=== PATIENT | female | born 1970 | race Caucasian/White ===

== ENCOUNTER 2022-02-15 11:37 | Emergency (ER) | payer SELFPAY ==
[2022-02-15 11:45] VITALS: BP 115/70; PULSE 81; RESP 16; TEMP 36.7; O2SAT 98; BMI 17.6
[2022-02-15] MEDS: sodium chloride 0.9% 1,000 ML 999 ML IV ×2 (12:09→12:45)
[2022-02-15 12:11] LABS: Basophils % 0.4 %; Eosinophils # 0.2 10^3/uL (0.0-0.8); Eosinophils % 2.7 %; Hematocrit 44.7 % (37.0-47.0); Hemoglobin 14.4 g/dL (11.5-15.3); Lymphocytes # 2.7 10^3/uL (0.8-4.8); Lymphocytes % 38.6 %; Mean Corpuscular HGB Conc 32.2 g/dL (30.0-36.0); Mean Corpuscular Hemoglobin 33.2 pg (28.0-34.0); Mean Platelet Volume 12.3 fL (7.4-10.4); Monocytes # 0.5 10^3/uL (0.2-0.9); Monocytes % 7.7 %; Neutrophils # 3.48 10^3/uL (1.8-7.7); Neutrophils % 50.3 %; Nucleated Red Blood Cells % 0 %; Platelet Count 272 10^3/cmm (130-400); Red Blood Count 4.34 10^6/uL (4.1-5.3); Red Cell Distribution Width 11.9 % (12.1-15.1); White Blood Count 6.9 10^3/uL (4.0-10.0)
--- NOTE | 2022-02-15 12:18 | W.ED.GENADLT ---
HPI - General Adult General: Chief complaint: Abdominal Pain Stated complaint: side pain and passing out Time Seen by Provider: 02/15/22 11:49 History of Present Illness: Patient is a 51-year-old female with history of prior C-sections, partial hysterectomy, tubal ligation presenting to the emergency room with complaints of left upper abdominal pain for the last 3-month. Patient tells me over that period time, the pain has progressively worsened. When she lies flat the pain is worse. Patient reports the pain is intermittent colicky not worse with p.o. intake. Patient denies any diarrhea, melena medic easier. Patient denies any complaints, prior history of renal colic, or any vaginal discharge. Patient denies any chest pain, shortness breath palpitation cough runny nose sore throat. Patient has any nausea or vomiting. Onset:3 months ago Duration:3 months Location:home Severity:moderate Associated symptoms: Deny chest pain, dyspnea, nausea, rash, palpitations or vomiting Review of Systems Const: Denies: fever(s) or chills Eyes: Denies: change in vision ENMT: Denies: mouth pain Card: Denies: chest pain or palpitations Resp: Denies: dyspnea or non-productive cough GI: Reports: abdominal pain (+L sided abd pain); Denies: nausea, vomiting or diarrhea : Denies: dysuria Musc: Denies: extremity pain Skin/Breast: Denies: rash or new lesions Neuro: Denies: weakness in extremities Psych: Reports: other (Normal mood) Baldomero/Lymph: Denies: easy bruising PFSH ED PFSH: Surgical History Hx of section S/P partial hysterectomy Tubal ligation status Social History Smoking and tobacco status: current every day smoker Alcohol intake: never Substance/Drug Use: current Physical Exam Const: COMMON NORMALS: alert HENMT: COMMON NORMALS: atraumatic HEAD & SCALP: atraumatic MOUTH: moist mucous membranes not abnormal Eye: COMMON NORMALS: EOMs intact bilaterally and conjunctivae normal CONJUNCTIVA: Yes conjunctivae normal Neck/C-Spine: COMMON NORMALS: full ROM and supple Resp: COMMON NORMALS: normal respiratory effort and clear to auscultation bilaterally AUSCULTATION: clear to auscultation bilaterally Cardio: COMMON NORMALS: regular rate RATE: regular rate GI: COMMON NORMALS: Soft to palpation PALPATION: Yes Soft to palpation OTHER: +L flank and CVA focal TTP. NO guarding rebound, guarding, rigidity. Neg Valdovinos/Neg McBurney's point tenderness, no suprabupic tenderness to palpation. Extremity: COMMON NORMALS: full ROM Neuro: SENSORIUM/ORIENTATION: Yes alert MOTOR EXAM: No Abnormal motor strength present and Other motor observations present (no focal motor deficits) Psych: COMMON NORMALS: speech normal SPEECH: Yes normal speech MOOD & AFFECT: Yes euthymic mood Course Vital Signs: Vital signs: Vital Signs Temperature 98.1 F 02/15/22 11:45 Pulse Rate 61 02/15/22 16:38 Respiratory Rate 16 02/15/22 16:38 Blood Pressure 133/60 02/15/22 16:38 Pulse Oximetry 98 02/15/22 16:38 [facility] - General Adult Medical Decision Making 51-year-old female with history of prior C-sections, tubal ligation, partial hysterectomy presenting to emergency room with complaints of left-sided flank and back pain for the last 3-month now worsening. On exam, patient is mild tenderness palpation over the L flank and CVA areas. No guarding or rebound tenderness. No suspicion for other acute intra-abdominal pathology including SBO, biliary pathology, appendicitis, diverticulitis, or other emergent condition requiring surgery. Incidental findings of vaginal thickening, nonspecific lymph nodes, and liver findings discussed extensively with patient. Patient received a copy of the CT report with the documented findings. Patient is instructed to follow up urgently with specialists. Current time, patient has no vaginal complaints or vaginal bleeding. I have given patient close follow-up with primary care provider for further reassessment everything discussed. She reports that her pain has significantly improved. Patient is able to tolerate p.o. in the emergency room. Rx tylenol PRN abd pain, maalox/pepcid PRN dyspepsia, and zofran PRN nausea/vomiting Disposition: Discharge. Patient counseled regarding diagnostic impression, treatment plan. Patient given ED strict return precautions to return for continuation, worsening, or development of new symptoms. Instructed to f/u w/ PCP regarding symptoms today. Patient verbalized understanding. Lab Data : 02/15/22 12:08 02/15/22 12:08 Radiology Impressions Abdomen/Pelvis CT 02/15/22 14:32 IMPRESSION: 1. Nonspecific upper vaginal soft tissue thickening and minimal regional stranding/inflammatory response near the vaginal cuff region. No drainable collection or adnexal region masses. Absent uterus. Clinical correlation should be obtained. If additional imaging is required, contrast-enhanced MRI may also be considered. 2. Nonspecific diffuse periportal lucency. See discussion above. No cirrhosis or discrete hepatic mass or gallbladder wall thickening. No biliary dilatation. 3. Borderline sized regional periceliac lymph node is noted as described. No other enlarged adenopathy. Laboratory Results WBC 6.9 10^3/uL (4.0-10.0) 02/15/22 12:08 RBC 4.34 10^6/uL (4.1-5.3) 02/15/22 12:08 Hgb 14.4 g/dL (11.5-15.3) 02/15/22 12:08 Hct 44.7 % (37.0-47.0) 02/15/22 12:08 MCV 103.0 fl (81-99) H 02/15/22 12:08 MCH 33.2 pg (28.0-34.0) 02/15/22 12:08 MCHC 32.2 g/dL (30.0-36.0) 02/15/22 12:08 RDW 11.9 % (12.1-15.1) L 02/15/22 12:08 Plt Count 272 10^3/cmm (130-400) 02/15/22 12:08 MPV 12.3 fL (7.4-10.4) H 02/15/22 12:08 Neut % (Auto) 50.3 % 02/15/22 12:08 Lymph % (Auto) 38.6 % 02/15/22 12:08 Talbot % (Auto) 7.7 % 02/15/22 12:08 Eos % (Auto) 2.7 % 02/15/22 12:08 Baso % (Auto) 0.4 % 02/15/22 12:08 Neut # (Auto) 3.48 10^3/uL (1.8-7.7) 02/15/22 12:08 Lymph # (Auto) 2.7 10^3/uL (0.8-4.8) 02/15/22 12:08 Talbot # (Auto) 0.5 10^3/uL (0.2-0.9) 02/15/22 12:08 Eos # (Auto) 0.2 10^3/uL (0.0-0.8) 02/15/22 12:08 Baso # (Auto) 0.0 10^3/uL (0.0-0.1) 02/15/22 12:08 Nucleated RBC % (auto) 0 % 02/15/22 12:08 Nucleated RBCs # 0.0 /100WBC 02/15/22 12:08 Sodium 139 mmol/L (136-145) 02/15/22 12:08 Potassium 3.9 mmol/L (3.5-5.1) 02/15/22 12:08 Chloride 101 mmol/L (98-107) 02/15/22 12:08 Carbon Dioxide 30 mmol/L (22-29) H 02/15/22 12:08 Anion Gap 11.9 (5-19) 02/15/22 12:08 BUN 6 mg/dL (6-20) 02/15/22 12:08 Creatinine 0.8 mg/dL (0.5-0.9) 02/15/22 12:08 GFR Calculation 76.2 mL/min (90-130) L 02/15/22 12:08 Glucose 74 mg/dL (65-115) 02/15/22 12:08 Calculated Osmolality 284 mOsm/kg (285-295) L 02/15/22 12:08 Calcium 9.5 mg/dL (8.5-10.5) 02/15/22 12:08 Total Bilirubin 0.2 mg/dL (0.15-1.2) 02/15/22 12:08 AST 18 U/L (0-32) 02/15/22 12:08 ALT 13 U/L (0-33) 02/15/22 12:08 Alkaline Phosphatase 82 IU/L (35-105) 02/15/22 12:08 Troponin T Gen 5 ng/L 6 ng/L (0-10) 02/15/22 12:08 Total Protein 7.5 g/dL (6.6-8.7) 02/15/22 12:08 Albumin 4.6 g/dL (3.5-5.2) 02/15/22 12:08 Globulin 2.9 g/dL (1.3-4.6) 02/15/22 12:08 Lipase 46 U/L (13-60) 02/15/22 12:08 Urine Color Yellow (Yellow) 02/15/22 13:21 Urine Appearance Clear (CLEAR) 02/15/22 13:21 Urine pH 6.5 (5-7) 02/15/22 13:21 Ur Specific Sultan 1.010 (1.005-1.030) 02/15/22 13:21 Urine Protein Neg (Negative) 02/15/22 13:21 Urine Glucose (UA) Norm (Normal) 02/15/22 13:21 Urine Ketones Negative (Negative) 02/15/22 13:21 Urine Blood Neg (Negative) 02/15/22 13:21 Urine Nitrate Negative (Negative) 02/15/22 13:21 Urine Bilirubin Neg (Negative) 02/15/22 13:21 Urine Urobilinogen Norm mg/dL (Negative) 02/15/22 13:21 Ur Leukocyte Esterase Negative (Negative) 02/15/22 13:21 Imaging Data Other Imaging: Radiologist's impression: [employer] [address] XRay Report Signed Patient: Karissa Durbin Unit #: [id number] : 05/28/1981 Age/Sex: 40 / F ADM Date: 02/15/22 Loc: ER Room/Bed: Attending Dr: Ordering Provider/Ordering MD: Reginaldo Joshua MD Date of Service: 02/15/22 Procedure(s): XR KUB portable [id number] Accession Number(s): [id number] Report Number: [id number] PROCEDURE INFORMATION: Exam: XR Abdomen Exam date and time: 02/15/2022 3:09 PM Age: 40 years old Clinical indication: Other: Swallowed foreign body; Additional info: Swallowed plastic TECHNIQUE: Imaging protocol: Radiologic exam of the abdomen. Views: Frontal supine view of the abdomen. 1 View. COMPARISON: CR (ABDOMEN, ) 01/10/2022 6:51 PM FINDINGS: Gastrointestinal tract: Normal. No bowel dilation. There is a radiodense object present in the right lower quadrant measuring 21 mm x 21 mm. This finding was not present on prior examination and correlates with a GI tract foreign body. This finding appears to be in the projection of the cecum but may be in small bowel near the cecum. Bones/joints: Unremarkable. XR/XR KUB portable 91300 IMPRESSION: 1. No acute GI abnormality. 2. Radiodense foreign body right lower quadrant ? Dictated By: Bruce Alcantar Signed By: Bruce Alcantar Signed Date/Time: 02/15/22 1550 DD/ 1509 [facility] [address] [place] [address] CT Scan Report Signed Patient: Cheli Dallas Unit #: [id number] : 1970 Age/Sex: 51 / F ADM Date: 02/15/22 Loc: ER Room/Bed: Attending Dr: Ordering Provider/Ordering MD: Reginaldo Joshua MD Date of Service: 02/15/22 Procedure(s): CT abdomen pelvis w con* [id number] Accession Number(s): [id number] Report Number: [id number] PROCEDURE INFORMATION: Exam: CT Abdomen And Pelvis With Contrast Exam date and time: 02/15/2022 3:13 PM Age: 51 years old Clinical indication: Abdominal pain; Localized; Left lower quadrant (llq); Prior surgery; Surgery type: Partial hysto; Additional info: Abd pain TECHNIQUE: Imaging protocol: Computed tomography of the abdomen and pelvis with contrast. Radiation optimization: All CT scans at this facility use at least one of these dose optimization techniques: automated exposure control; mA and/or kV adjustment per patient size (includes targeted exams where dose is matched to clinical indication); or iterative reconstruction. Contrast material: OMNI 350; Contrast volume: 80 ml; Contrast route: INTRAVENOUS (IV);? COMPARISON: No relevant prior studies available. RADIATION DOSE METRICS: Total DLP (mGy-cm): 288.7 FINDINGS: Liver: Liver is normal in size without cirrhosis or discrete mass. However there is nonspecific diffuse periportal lucency which is nonspecific and may be related to diffuse hepatic biliary disease or edema secondary to systemic/cardiac disease. No obvious biliary dilatation. Gallbladder and bile ducts: No obvious gallbladder wall thickening or regional inflammatory response. Pancreas: Normal. No ductal dilation. Spleen: Normal. No splenomegaly. Adrenal glands: Normal. No mass. Kidneys and ureters: No obstructing calculus. No hydronephrosis. Stomach and bowel: Moderate stool burden with no bowel obstruction or suspicious bowel findings otherwise. Appendix: No evidence of appendicitis. Intraperitoneal space: Unremarkable. No free air. No significant fluid collection. Vasculature: No abdominal aortic aneurysm.? Lymph nodes: Borderline size periceliac lymph node is noted measuring 9 mm short axis. Otherwise no enlarged regional adenopathy. Urinary bladder: Unremarkable as visualized. Reproductive: Absent uterus. There is probable nonspecific soft tissue thickening and mild regional soft tissue haziness in the upper vaginal region near the vaginal cuff. Clinical correlation should be obtained. No adnexal region masses. Bones/joints: No acute fracture.? Soft tissues: See Reproductive finding. CT/CT abdomen pelvis w con* [id number] IMPRESSION: 1. Nonspecific upper vaginal soft tissue thickening and minimal regional stranding/inflammatory response near the vaginal cuff region. No drainable collection or adnexal region masses. Absent uterus. Clinical correlation should be obtained. If additional imaging is required, contrast-enhanced MRI may also be considered. 2. Nonspecific diffuse periportal lucency. See discussion above. No cirrhosis or discrete hepatic mass or gallbladder wall thickening. No biliary dilatation. 3. Borderline sized regional periceliac lymph node is noted as described. No other enlarged adenopathy. ? Dictated By: Kam Ayoub MD Signed By: Kam Ayoub MD Signed Date/Time: 02/15/22 1556 DD/ 1513 Discharge Plan Discharge Patient Disposition: Home Clinical Impression: Abdominal pain Condition: Stable Prescriptions: New acetaminophen 500 mg tablet 500 mg PO Q6H PRN (Reason: pain) 5 Days Qty: 20 0RF Pepcid 20 mg tablet 20 mg PO BID PRN (Reason: abdominal pain) 10 Days Qty: 20 0RF ondansetron 4 mg tablet,disintegrating 4 mg PO TID PRN (Reason: nausea and vomiting) 4 Days Qty: 12 0RF Discharge Orders: Discharge ED (Routine); Ordered 02/15/22 Ordered By: Reginaldo Joshua Discharge Diet: Advance as tolerated Discharge Activity: Increase activity as tolerated Patient Instructions: Abdominal Pain (ED) Activity Restrictions/Additional Instructions: Please come back if you have any worsening abdominal pain, fever or chills, nausea or vomiting, diarrhea, blood in the stool, inability hold down liquid or solids, or any new concerning complaints. Please follow up with your primary care provider for all the findings below. Here's a copy of your CT report: [facility] [employer] [address] [place] [address] [id number] [address] Scan Report Signed Patient: Cheli Dallas Unit #: [id number] : 1970 Age/Sex: 51 / F ADM Date: 02/15/22 Loc: ER Room/Bed: Attending Dr: Ordering Provider/Ordering MD: Rgeinaldo Joshua MD Date of Service: 02/15/22 Procedure(s): CT abdomen pelvis w con* [id number] Accession Number(s): [id number] Report Number: [id number] PROCEDURE INFORMATION: Exam: CT Abdomen And Pelvis With Contrast Exam date and time: 02/15/2022 3:13 PM Age: 51 years old Clinical indication: Abdominal pain; Localized; Left lower quadrant (llq); Prior surgery; Surgery type: Partial hysto; Additional info: Abd pain TECHNIQUE: Imaging protocol: Computed tomography of the abdomen and pelvis with contrast. Radiation optimization: All CT scans at this facility use at least one of these dose optimization techniques: automated exposure control; mA and/or kV adjustment per patient size (includes targeted exams where dose is matched to clinical indication); or iterative reconstruction. Contrast material: OMNI 350; Contrast volume: 80 ml; Contrast route: INTRAVENOUS (IV);? COMPARISON: No relevant prior studies available. RADIATION DOSE METRICS: Total DLP (mGy-cm): 288.7 FINDINGS: Liver: Liver is normal in size without cirrhosis or discrete mass. However there is nonspecific diffuse periportal lucency which is nonspecific and may be related to diffuse hepatic biliary disease or edema secondary to systemic/cardiac disease. No obvious biliary dilatation. Gallbladder and bile ducts: No obvious gallbladder wall thickening or regional inflammatory response. Pancreas: Normal. No ductal dilation. Spleen: Normal. No splenomegaly. Adrenal glands: Normal. No mass. Kidneys and ureters: No obstructing calculus. No hydronephrosis. Stomach and bowel: Moderate stool burden with no bowel obstruction or suspicious bowel findings otherwise. Appendix: No evidence of appendicitis. Intraperitoneal space: Unremarkable. No free air. No significant fluid collection. Vasculature: No abdominal aortic aneurysm.? Lymph nodes: Borderline size periceliac lymph node is noted measuring 9 mm short axis. Otherwise no enlarged regional adenopathy. Urinary bladder: Unremarkable as visualized. Reproductive: Absent uterus. There is probable nonspecific soft tissue thickening and mild regional soft tissue haziness in the upper vaginal region near the vaginal cuff. Clinical correlation should be obtained. No adnexal region masses. Bones/joints: No acute fracture.? Soft tissues: See Reproductive finding. CT/CT abdomen pelvis w con* [id number] IMPRESSION: 1. Nonspecific upper vaginal soft tissue thickening and minimal regional stranding/inflammatory response near the vaginal cuff region. No drainable collection or adnexal region masses. Absent uterus. Clinical correlation should be obtained. If additional imaging is required, contrast-enhanced MRI may also be considered. 2. Nonspecific diffuse periportal lucency. See discussion above. No cirrhosis or discrete hepatic mass or gallbladder wall thickening. No biliary dilatation. 3. Borderline sized regional periceliac lymph node is noted as described. No other enlarged adenopathy. ? Dictated By: Kam Ayoub MD Signed By: Kam Ayoub MD Signed Date/Time: 02/15/22 1556 DD/ 1513 Coding Level of Care Code ED Juice Tester for Chg Fwd Exam Comprehensive
[2022-02-15 12:37] LABS: Alanine Aminotransferase 13 U/L (0-33); Albumin Level 4.6 g/dL (3.5-5.2); Alkaline Phosphatase 82 IU/L (35-105); Anion Gap 11.9 (5-19); Aspartate Amino Transferase 18 U/L (0-32); Blood Urea Nitrogen 6 mg/dL (6-20); Calcium 9.5 mg/dL (8.5-10.5); Carbon Dioxide 30 mmol/L (22-29); Chloride 101 mmol/L (98-107); Creatinine Clr Calc Pharmacy 58.5889; Globulin 2.9 g/dL (1.3-4.6); Glomerular Filtration Rate 76.2 mL/min (90-130); Glucose 74 mg/dL (65-115); Lipase 46 U/L (13-60); Osmolality Calculated 284 mOsm/kg (285-295); Potassium 3.9 mmol/L (3.5-5.1); Sodium 139 mmol/L (136-145); Total Bilirubin 0.2 mg/dL (0.15-1.2); Total Protein 7.5 g/dL (6.6-8.7)
[2022-02-15 12:38] LABS: Troponin T (5th) Once 6 ng/L (0-10)
[2022-02-15] MEDS: morphine 4 mg/mL SDV 1 mL 2 MG IVP ×2 (12:45→15:30)
--- NOTE | 2022-02-15 13:20 | ECG_ITS ---
[facility] Test Date: 2022-02-15 Pat Name: Cheli Dallas Department: Room: Gender: Female Lab Manager: : 1970 Requested By: Reginaldo Joshua Order Number: [id number] Willard MD: Chencho Brown M.D. Measurements Intervals [place] Rate: 48 P: 52 WY: 129 QRS: 78 QRSD: 82 T: 67 QT: 458 QTc: 410 Interpretive Statements SINUS BRADYCARDIA LOW QRS VOLTAGE IN PRECORDIAL LEADS [QRS DEFLECTION < 1.0 mV IN CHEST LEADS] No previous ECG available for comparison Electronically Signed On 02-16-2022 17:40:19 CDT by Chencho Brown M.D. [id number] f
[2022-02-15 13:51] LABS: Add Urine Microscopic? NO; Charge for UA Resulting for Rev
[2022-02-15 14:21] LABS: Bilirubin Urine Neg (Negative); Blood Urine Neg (Negative); Glucose Urine UA Norm (Normal); Ketones Urine Negative (Negative); Leukocyte Esterase Urine Negative (Negative); Nitrate Urine Negative (Negative); Protein Urine Neg (Negative); Urine Appearance Clear (CLEAR); Urine Color Yellow (Yellow); Urobilinogen Urine Norm (Negative); pH Urine 6.5 (5-7)
--- NOTE | 2022-02-15 14:32 | CTR_ITS ---
PROCEDURE INFORMATION: Exam: CT Abdomen And Pelvis With Contrast Exam date and time: 02/15/2022 3:13 PM Age: 51 years old Clinical indication: Abdominal pain; Localized; Left lower quadrant (llq); Prior surgery; Surgery type: Partial hysto; Additional info: Abd pain TECHNIQUE: Imaging protocol: Computed tomography of the abdomen and pelvis with contrast. Radiation optimization: All CT scans at this facility use at least one of these dose optimization techniques: automated exposure control; mA and/or kV adjustment per patient size (includes targeted exams where dose is matched to clinical indication); or iterative reconstruction. Contrast material: OMNI 350; Contrast volume: 80 ml; Contrast route: INTRAVENOUS (IV); COMPARISON: No relevant prior studies available. RADIATION DOSE METRICS: Total DLP (mGy-cm): 288.7 FINDINGS: Liver: Liver is normal in size without cirrhosis or discrete mass. However there is nonspecific diffuse periportal lucency which is nonspecific and may be related to diffuse hepatic biliary disease or edema secondary to systemic/cardiac disease. No obvious biliary dilatation. Gallbladder and bile ducts: No obvious gallbladder wall thickening or regional inflammatory response. Pancreas: Normal. No ductal dilation. Spleen: Normal. No splenomegaly. Adrenal glands: Normal. No mass. Kidneys and ureters: No obstructing calculus. No hydronephrosis. Stomach and bowel: Moderate stool burden with no bowel obstruction or suspicious bowel findings otherwise. Appendix: No evidence of appendicitis. Intraperitoneal space: Unremarkable. No free air. No significant fluid collection. Vasculature: No abdominal aortic aneurysm. Lymph nodes: Borderline size periceliac lymph node is noted measuring 9 mm short axis. Otherwise no enlarged regional adenopathy. Urinary bladder: Unremarkable as visualized. Reproductive: Absent uterus. There is probable nonspecific soft tissue thickening and mild regional soft tissue haziness in the upper vaginal region near the vaginal cuff. Clinical correlation should be obtained. No adnexal region masses. Bones/joints: No acute fracture. Soft tissues: See Reproductive finding. CT/CT abdomen pelvis w con* [id number] IMPRESSION: 1. Nonspecific upper vaginal soft tissue thickening and minimal regional stranding/inflammatory response near the vaginal cuff region. No drainable collection or adnexal region masses. Absent uterus. Clinical correlation should be obtained. If additional imaging is required, contrast-enhanced MRI may also be considered. 2. Nonspecific diffuse periportal lucency. See discussion above. No cirrhosis or discrete hepatic mass or gallbladder wall thickening. No biliary dilatation. 3. Borderline sized regional periceliac lymph node is noted as described. No other enlarged adenopathy.
[2022-02-15] MEDS: iohexol 350 mg/mL 100 mL Btl IV (15:18)
[2022-02-15 15:30] VITALS: RESP 16
[2022-02-15 16:38] VITALS: BP 133/60; PULSE 61; RESP 16; O2SAT 98
--- NOTE | 2022-02-17 14:17 | DCPLANNER ---
hardware engineering manager had message to speak with patient about getting established with a primary care physician. hardware engineering manager called phone number [phone], unable to speak with patient due this being a non working number.
== END 2022-02-15 16:39 | disposition home or self-care (01) ==
PROVIDERS: Emergency Provider Emergency Medicine
DX: R10.9 Unspecified abdominal pain (principal); F17.210 Nicotine dependence, cigarettes, uncomplicated
CPT/HCPCS: 74177; 80053; 81003; 83690; 84484; 85025; 93005; 96361; 96374; 96376; 99285; J2270; J7030; Q9967